=== PATIENT | male | born 1980 | race Caucasian/White ===

== ENCOUNTER 2016-10-04 17:00 | Emergency (ER) | payer OTHER ==
--- NOTE | 2016-10-04 17:31 | ER NURSING DOCUMENTATION ---
Nurse's Notes [facility] Name:John Kohli Jr Age:36 yrs Sex:Male :1980 Arrival Date:10/04/2016 Time:17:00 Bed4 Private MD: Diagnosis: Presentation: 10/04 17:23 Presenting complaint: Patient states: Left flank pain. Thinks he may have a kidney rs stone. Hx of "urinary tract pain" and was told to get a CT, which he did not do. 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 Is leaving without being seen for this reason. No VS were done. He appears to be in pain, pacing and hold his left flank. Rates pain 8/10. Has not taken any pain medication. States he may return. Transition of care: patient was not received from another setting of care. 17:23 Acuity: YASMEEN 3 rs 17:23 Method Of Arrival: Private Vehicle ED Course: 17:01 Patient arrived in ED. ds 17:27 Triage completed. rs 17:30 Oleg Mcdonald MD is Attending Physician. rs Administered Medications: No medications were administered Outcome: 17:28 No charge visit due to Left without being seen. . rs 17:30 Patient left the ED. rs Signatures: Marbella Avila RN RN rs Alena Teresa, Reg Reg ds
== END 2016-10-04 17:31 | disposition home or self-care (01) ==
LOC: ER 17:00
DX: Z02.9 Encounter for administrative examinations, unspecified (principal)